=== PATIENT | female | born 1950 | race Caucasian/White ===

== ENCOUNTER 2018-09-25 13:31 | Emergency (ER) | payer MEDICARE, BC ==
[2018-09-25 14:27] VITALS: BP 162/75; PULSE 99; RESP 16; TEMP 98.2; O2SAT 98
== END 2018-09-25 16:05 | disposition home or self-care (01) | DRG 563 ==
LOC: ED 13:31
DX: S63.501A Unspecified sprain of right wrist, initial encounter (principal)
CPT/HCPCS: 73110; 99282